=== PATIENT | male | born 2000 | race Hispanic/Latino ===

== ENCOUNTER 2019-05-13 00:20 | Emergency (ER) | payer MEDICAID, OTHER | END 2019-05-13 00:52 | disposition home or self-care (01) | LOC: EDH 00:20 | DX: S00.83XA Contusion of other part of head, initial encounter (principal); L55.0 Sunburn of first degree; V47.5XXA Car driver injured in collision with fixed or stationary object in traffic accident, initial encounter; Y93.89 Activity, other specified; Y92.89 Other specified places as the place of occurrence of the external cause; Y99.8 Other external cause status ==